=== PATIENT | female | born 1960 | race Caucasian/White ===

== ENCOUNTER → 2017-05-25 | Outpatient (CLI) | payer BC | END | disposition home or self-care (01) | LOC: LABWHC1 09:34 → LABPAT 09:34 | PROVIDERS: ATTEND Surgery Plastic and Reconstructive Surgery | DX: Z01.810 Encounter for preprocedural cardiovascular examination (principal) | CPT/HCPCS: 36415; 86850; 86900; 86901; 93005 ==

== ENCOUNTER 2022-06-20 00:59 | Inpatient (IN) | payer BC ==
--- NOTE | 2022-06-20 02:11 | ED ---
Weakness HPI - General Chief complaint: Weakness Stated complaint: dehydration Time Seen by Provider: 06/20/22 01:09 Source: EMS Mode of arrival: EMS Limitations: no limitations - History of Present Illness Initial comments: 54-year-old female past mental history of hypertension, thyroid disorder presents emergency department for [facility] as a transfer. Patient was hospitalized from the through the at their facility for nausea, vom iting and weakness. She had an EGD performed yesterday where she had "dilation of her pyloric sphincter" by Dr. Lerma after was found to be spastic. Patient also had small hiatal hernia. requested that the patient stay after the anesthesia as she normally is very sedated after procedures however they discharged her home. He was concerned that due to her hospitalization that she was severely decompensated and needed rehab. Patient was discharged home against there requests. She presented again tonight in the emergency department because of weakness. He required 3 nurses to get her into the examination room. She was minimally responsive. Laboratory studies were obtained. A CT head was performed which was read no acute process. Patient was given 2 L bolus of normal saline informal grams of Zofran. was requesting transfer to an outside facility as she has not been getting better. Transfer accepted by myself after approval from Dr. Christie. - Related Data Home Medications Medication Instructions Recorded Confirmed Omeprazole [PriLOSEC] 40 mg PO DAILY 06/20/22 06/20/22 Ondansetron Odt [Zofran Odt] 4 mg PO Q6H PRN 06/20/22 06/20/22 Potassium Chloride [Klor-Con 8] 8 meq PO DAILY 06/20/22 06/20/22 amLODIPine [Norvasc] 5 mg PO DAILY 06/20/22 06/20/22 levETIRAcetam [Keppra] 500 mg PO Q12HR 06/20/22 06/20/22 lisinopriL [Zestril] 5 mg PO BID 06/20/22 06/20/22 Allergies Allergy/AdvReac Type Severity Reaction Status Date / Time prednisone Allergy Rash/Hives Verified 06/20/22 08:08 sulfamethoxazole Allergy Rash/Hives Verified 06/20/22 08:08 [From Bactrim] trimethoprim [From Bactrim] Allergy Rash/Hives Verified 06/20/22 08:08 narcotics AdvReac Vomiting Uncoded 06/20/22 08:08 Review of Systems ROS Statement: Those systems with pertinent positive or pertinent negative responses have been documented in the HPI. ROS Other: All systems not noted in ROS Statement are negative. Past Medical History Past Medical History: Diabetes Mellitus, GERD/Reflux, Hypertension, Liver Disease, Osteoarthritis (OA), Pneumonia Additional Past Medical History / Comment(s): Pneumonia X2, Fatty liver. Current Hiatal Hernia. History of Any Multi-Drug Resistant Organisms: None Reported Past Surgical History: Hysterectomy, Orthopedic Surgery, Tonsillectomy Additional Past Surgical History / Comment(s): Right foot surgery, right knee arthroscopy, EGD, colonoscopy. Past Anesthesia/Blood Transfusion Reactions: Postoperative Nausea & Vomiting (P ONV) Past Psychological History: Anxiety Past Alcohol Use History: Rare Past Drug Use History: None Reported - Past Family History Father Family Medical History: Cancer Mother Family Medical History: Cancer General Exam Limitations: no limitations General appearance: alert, in no apparent distress Head exam: Present: atraumatic, normocephalic, normal inspection Eye exam: Present: normal appearance, PERRL, EOMI. Absent: scleral icterus, conjunctival injection, periorbital swelling ENT exam: Present: normal exam, mucous membranes moist Neck exam: Present: normal inspection. Absent: tenderness, meningismus, lymphadenopathy Respiratory exam: Present: normal lung sounds bilaterally. Absent: respiratory distress, wheezes, rales, rhonchi, stridor Cardiovascular Exam: Present: regular rate, normal rhythm, normal heart sounds. Absent: systolic murmur, diastolic murmur, rubs, gallop, clicks GI/Abdominal exam: Present: soft, normal bowel sounds. Absent: distended, tenderness, guarding, rebound, rigid Extremities exam: Present: normal inspection, full ROM, normal capillary refill. Absent: tenderness, pedal edema, joint swelling, calf tenderness Back exam: Present: normal inspection Neurological exam: Present: alert, oriented X3, CN II-XII intact Psychiatric exam: Present: normal affect, normal mood Skin exam: Present: warm, dry, intact, normal color. Absent: rash Course Vital Signs 06/20/22 06/20/22 06/20/22 01:14 04:48 05:37 Temperature 98.3 F Pulse Rate 81 74 Pulse Rate [ 73 Pulse Oximetery ] Respiratory 15 18 17 Rate Blood Pressure 131/72 147/87 Blood Pressure 165/92 [Left Arm] O2 Sat by Pulse 98 95 97 Oximetry EKG Findings - EKG Comments: EKG Findings:: EKG demonstrates sinus rhythm with a rate is 76. TN interval 120. QRS 90. QTC of 409. No acute ST segment elevations or depressions Medical Decision Making - Medical Decision Making Upon arrival patient was placed into room 4. I did review the patient's chart. I did complete laboratory studies myself. Magnesium is 1.4. I did replace her magnesium. Patient will be admitted to [facility] with GI consult - Lab Data Result diagrams: 06/21/22 06:09 06/21/22 06:09 Lab Results 06/20/22 06/20/22 06/20/22 Range/Units 02:09 02:19 02:19 WBC 9.5 (3.8-10.6) k/uL RBC 4.70 (3.80-5.40) m/uL Hgb 14.2 (11.4-16.0) gm/dL Hct 41.0 (34.0-46.0) % MCV 87.2 (80.0-100.0) fL MCH 30.2 (25.0-35.0) pg MCHC 34.7 (31.0-37.0) g/dL RDW 13.2 (11.5-15.5) % Plt Count 242 (150-450) k/uL MPV 8.0 Neutrophils % 67 % Lymphocytes % 24 % Monocytes % 6 % Eosinophils % 0 % Basophils % 1 % Neutrophils # 6.4 (1.3-7.7) k/uL Lymphocytes # 2.3 (1.0-4.8) k/uL Monocytes # 0.6 (0-1.0) k/uL Eosinophils # 0.0 (0-0.7) k/uL Basophils # 0.1 (0-0.2) k/uL PT 11.2 (9.0-12.0) sec INR 1.0 (<1.2) APTT 22.4 (22.0-30.0) sec Sodium (137-145) mmol/L Potassium (3.5-5.1) mmol/L Chloride (98-107) mmol/L Carbon Dioxide (22-30) mmol/L Anion Gap mmol/L BUN (7-17) mg/dL Creatinine (0.52-1.04) mg/dL Est GFR (CKD-EPI)AfAm (>60 ml/min/1.73 sqM) Est GFR (CKD-EPI)NonAf (>60 ml/min/1.73 sqM) Glucose (74-99) mg/dL Plasma Lactic Acid Gonzalo (0.7-2.0) mmol/L Calcium (8.4-10.2) mg/dL Magnesium (1.6-2.3) mg/dL Total Bilirubin (0.2-1.3) mg/dL AST (14-36) U/L ALT (4-34) U/L Alkaline Phosphatase (38-126) U/L Troponin I (0.000-0.034) ng/mL Total Protein (6.3-8.2) g/dL Albumin (3.5-5.0) g/dL TSH (0.465-4.680) mIU/L Urine Color Colorless Urine Appearance Clear (Clear) Urine pH 6.5 (5.0-8.0) Ur Specific [place] 1.006 (1.001-1.035) Urine Protein Negative (Negative) Urine Glucose (UA) Negative (Negative) Urine Ketones Negative (Negative) Urine Blood Negative (Negative) Urine Nitrite Negative (Negative) Urine Bilirubin Negative (Negative) Urine Urobilinogen <2.0 (<2.0) mg/dL Ur Leukocyte Esterase Negative (Negative) 06/20/22 06/20/22 06/20/22 Range/Units 02:19 02:19 02:19 WBC (3.8-10.6) k/uL RBC (3.80-5.40) m/uL Hgb (11.4-16.0) gm/dL Hct (34.0-46.0) % MCV (80.0-100.0) fL MCH (25.0-35.0) pg MCHC (31.0-37.0) g/dL RDW (11.5-15.5) % Plt Count (150-450) k/uL MPV Neutrophils % % Lymphocytes % % Monocytes % % Eosinophils % % Basophils % % Neutrophils # (1.3-7.7) k/uL Lymphocytes # (1.0-4.8) k/uL Monocytes # (0-1.0) k/uL Eosinophils # (0-0.7) k/uL Basophils # (0-0.2) k/uL PT (9.0-12.0) sec INR (<1.2) APTT (22.0-30.0) sec Sodium 137 (137-145) mmol/L Potassium 3.8 (3.5-5.1) mmol/L Chloride 100 (98-107) mmol/L Carbon Dioxide 24 (22-30) mmol/L Anion Gap 13 mmol/L BUN 7 (7-17) mg/dL Creatinine 0.55 (0.52-1.04) mg/dL Est GFR (CKD-EPI)AfAm >90 (>60 ml/min/1.73 sqM) Est GFR (CKD-EPI)NonAf >90 (>60 ml/min/1.73 sqM) Glucose 142 H (74-99) mg/dL Plasma Lactic Acid Gonzalo 1.2 (0.7-2.0) mmol/L Calcium 8.8 (8.4-10.2) mg/dL Magnesium 1.4 L (1.6-2.3) mg/dL Total Bilirubin 0.7 (0.2-1.3) mg/dL AST 55 H (14-36) U/L ALT 94 H (4-34) U/L Alkaline Phosphatase 76 (38-126) U/L Troponin I <0.012 (0.000-0.034) ng/mL Total Protein 6.6 (6.3-8.2) g/dL Albumin 4.1 (3.5-5.0) g/dL TSH 0.492 (0.465-4.680) mIU/L Urine Color Urine Appearance (Clear) Urine pH (5.0-8.0) Ur Specific [place] (1.001-1.035) Urine Protein (Negative) Urine Glucose (UA) (Negative) Urine Ketones (Negative) Urine Blood (Negative) Urine Nitrite (Negative) Urine Bilirubin (Negative) Urine Urobilinogen (<2.0) mg/dL Ur Leukocyte Esterase (Negative) Disposition Clinical Impression: Gastroesophageal reflux disease, Disorder of upper esophageal sphincter, Nausea & vomiting, Hypomagnesemia Disposition: ADMITTED IP TO [facility] Condition: Stable Is patient prescribed a controlled substance at d/c from ED?: No Time of Disposition: 03:44 Decision to Admit Reason: Admit from EC Decision Date: 06/20/22 Decision Time: 03:44
[2022-06-20 02:57] LABS: Basophils # (A) 0.1 k/uL (0-0.2); Basophils % (A) 1 %; Eosinophils % (A) 0 %; HGB 14.2 gm/dL (11.4-16.0); Lymphocytes # (A) 2.3 k/uL (1.0-4.8); Lymphocytes % (A) 24 %; MCH 30.2 pg (25.0-35.0); MCHC 34.7 g/dL (31.0-37.0); MCV 87.2 fL (80.0-100.0); Monocytes # (A) 0.6 k/uL (0-1.0); Monocytes % (A) 6 %; Neutrophils # (A) 6.4 k/uL (1.3-7.7); Neutrophils % (A) 67 %; Platelet Count 242 k/uL (150-450); RDW 13.2 % (11.5-15.5); WBC 9.5 k/uL (3.8-10.6)
[2022-06-20 03:11] LABS: Partial Thromboplastin Time 22.4 sec (22.0-30.0); Prothrombin Time 11.2 sec (9.0-12.0)
[2022-06-20 03:27] LABS: ALT 94 U/L (4-34); AST 55 U/L (14-36); African American GFR (CKD) >90 (>60 ml/min/1.73 sqM); Albumin 4.1 g/dL (3.5-5.0); Alkaline Phosphatase 76 U/L (38-126); Anion Gap 13 mmol/L; Blood Urea Nitrogen 7 mg/dL (7-17); Calcium 8.8 mg/dL (8.4-10.2); Carbon Dioxide 24 mmol/L (22-30); Chloride 100 mmol/L (98-107); Glucose 142 mg/dL (74-99); Magnesium 1.4 mg/dL (1.6-2.3); Non-African American GFR(CKD) >90 (>60 ml/min/1.73 sqM); Potassium 3.8 mmol/L (3.5-5.1); Sodium 137 mmol/L (137-145); Total Bilirubin 0.7 mg/dL (0.2-1.3); Total Protein 6.6 g/dL (6.3-8.2)
[2022-06-20] MEDS ORDERED: NALOXONE 0.4 MG/ML 1 ML VIAL IV PRN (03:46)
[2022-06-20] MEDS: SODIUM CHLORIDE 0.9% 1,000 ML IV SCH ×3 (05:39→20:16)
[2022-06-20] MEDS: MAGNESIUM SULFATE-D5W PMX 1 GM in DEXTROSE/WATER 1 100ML.BAG IVPB SCH ×3 (05:40→12:43)
[2022-06-20] MEDS: ONDANSETRON 4 MG/2 ML VIAL IVP PRN ×2 (06:27→20:16)
[2022-06-20 09:13] LABS: Appearance,Urine Clear (Clear); Bilirubin,Urine Negative (Negative); Blood,Urine Negative (Negative); Color,Urine Colorless; Glucose,Urine (UA) Negative (Negative); Ketones,Urine Negative (Negative); Leukocyte Esterase,Urine Negative (Negative); Nitrite,Urine Negative (Negative); PH, Urine 6.5 (5.0-8.0); Protein,Urine Negative (Negative); Specific Gravity,Urine 1.006 (1.001-1.035); Urobilinogen,Urine <2.0 mg/dL (<2.0)
[2022-06-20] MEDS: PANTOPRAZOLE 40 MG/10 ML VIAL IV SCH (09:36)
[2022-06-20] MEDS: lisinopriL 5 MG TAB PO SCH ×2 (10:56→20:15)
[2022-06-20] MEDS: levETIRAcetam 500 MG TAB PO SCH ×2 (10:56→20:15)
[2022-06-20] MEDS: amLODIPine 5 MG TAB PO SCH (10:56)
[2022-06-20] MEDS: HEPARIN SODIUM,PORCINE/PF 5,000 UNIT/0.5 ML SYRINGE SQ SCH ×2 (16:47→23:11)
--- NOTE | 2022-06-20 17:32 | P.CONS ---
History of Present Illness - Reason for Consult Consult date: 06/20/22 Nausea and vomiting Requesting physician: Ashley Butler - Chief Complaint Nausea and vomiting, weakness - History of Present Illness There is a pleasant 61-year-old female who was transferred from [facility] for intractable nausea and vomiting. She has a past medical history of diabetes mellitus diagnosed 15 years ago, states it is well controlled, GERD, hypertension, fatty liver and history of pneumonia. Apparently patient had been having nausea and vomiting for the last 12 days duration. She went [facility], and underwent an EGD yesterday and was diagnosed with spastic pylorus and a small hiatal hernia and status post low grade dilation of pylorus. She was discharged on Carafate and omeprazole. Apparently, the patient wanted to stay in the hospital due to increased weakness and fatigue however she was discharged home that afternoon. Apparently patient and reports that she had some electrolyte imbalances and was given replacement prior to discharge. When she was home she was able to eat a small amount of oatmeal and some saltine crackers without any nausea or vomiting. However patient ended up passing out, was very weak and went back to [facility]. At that time they asked to be transferred to a larger facility. Gastroenterology was consulted for intractable nausea and vomiting. Patient currently is denying any abdominal pain, she has some nausea but no vomiting. Admitting labs WBC 9.5 hemoglobin 14 hematocrit 41 platelet count 242,000 and INR 1.0 sodium 137 potassium 3.8 BUN 7 creatinine 0.55 glucose 142 magnesium 1.4 total bilirubin 0.7 AST 55 ALT 94 alkaline phosphatase 76 Review of Systems REVIEW OF SYSTEMS: CARDIOPULMONARY: No chest pain or shortness of breath. Gastrointestinal: No abdominal pain. No nausea or 12 days of nausea and vomiting prior to EGD. Still having nausea today, no vomiting. No hematemesis, coffee-ground emesis. No rectal bleeding, or melena. GENITOURINARY: No dysuria or hematuria. MUSCULOSKELETAL: Reports normal range of motion. SKIN: No rashes. No jaundice. ENDOCRINE: No chills, fevers. No excessive weight gain or loss. No polydipsia or polyuria. PSYCHIATRIC: Unremarkable. NEUROLOGY: No change in mental status. Denies dizziness, headache. ENT: Vision unremarkable. CONSTITUTIONAL: Increased weakness, fatigue and dizziness. Past Medical History Past Medical History: Diabetes Mellitus, GERD/Reflux, Hypertension, Liver Disease, Osteoarthritis (OA), Pneumonia Additional Past Medical History / Comment(s): Pneumonia X2, Fatty liver. Current Hiatal Hernia. History of Any Multi-Drug Resistant Organisms: None Reported Past Surgical History: Hysterectomy, Orthopedic Surgery, Tonsillectomy Additional Past Surgical History / Comment(s): Right foot surgery, right knee arthroscopy, EGD, colonoscopy. Past Anesthesia/Blood Transfusion Reactions: Postoperative Nausea & Vomiting (PONV) Past Psychological History: Anxiety Past Alcohol Use History: Rare Past Drug Use History: None Reported - Past Family History Father Family Medical History: Cancer Mother Family Medical History: Cancer Medications and Allergies Home Medications Medication Instructions Recorded Confirmed Type Omeprazole [PriLOSEC] 40 mg PO DAILY 06/20/22 06/20/22 History Ondansetron Odt [Zofran Odt] 4 mg PO Q6H PRN 06/20/22 06/20/22 History Potassium Chloride [Klor-Con 8] 8 meq PO DAILY 06/20/22 06/20/22 History amLODIPine [Norvasc] 5 mg PO DAILY 06/20/22 06/20/22 History levETIRAcetam [Keppra] 500 mg PO Q12HR 06/20/22 06/20/22 History lisinopriL [Zestril] 5 mg PO BID 06/20/22 06/20/22 History Allergies Allergy/AdvReac Type Severity Reaction Status Date / Time prednisone Allergy Rash/Hives Verified 06/20/22 08:08 sulfamethoxazole Allergy Rash/Hives Verified 06/20/22 08:08 [From Bactrim] trimethoprim [From Bactrim] Allergy Rash/Hives Verified 06/20/22 08:08 narcotics AdvReac Vomiting Uncoded 06/20/22 08:08 Physical Exam Vitals: Vital Signs Temp Pulse Pulse Resp BP BP Pulse Ox 06/20/22 07:00 98.4 F 71 16 164/81 97 06/20/22 05:37 98.3 F 73 17 165/92 97 06/20/22 04:48 74 18 147/87 95 06/20/22 01:14 81 15 131/72 98 Intake and Output 06/19/22 06/20/22 06/20/22 22:59 06:59 14:59 Other: # Voids 0 Weight 113.398 kg General appearance: The patient is alert, oriented, appears in no acute distress. HET: Head is normocephalic and atraumatic. Conjunctiva pink. Sclera anicteric. Neck: Supple without lymphadenopathy. Trachea midline. Heart: S1 S2. Regular rate and rhythm. Lungs: Clear to auscultation. Abdomen: Soft, nontender, nondistended with bowel sounds. No guarding or rigidity. Skin: No rashes. No jaundice. Extremities: Normal skin color and turgor. No pedal edema. Neurological: No focal deficits. Alert and oriented x3. Results CBC & Chem 7: 06/20/22 02:19 06/20/22 02:19 Labs: Abnormal Lab Results - Last 24 Hours (Table) 06/20/22 Range/Units 02:19 Glucose 142 H (74-99) mg/dL Magnesium 1.4 L (1.6-2.3) mg/dL AST 55 H (14-36) U/L ALT 94 H (4-34) U/L Assessment and Plan (1) Nausea & vomiting Narrative/Plan: This is a pleasant 61-year-old female who presented to [facility] with a complaint of nausea vomiting 12 days duration. Patient states she had difficulty keeping food down. She underwent an EGD yesterday by Dr. Lerma who diagnosed her with a spastic pylorus and dilated her pyloric sphincter. Patient also had a small hiatal hernia. She was started on Carafate and omeprazole and discharged home. Apparently patient was still feeling severely fatigued, weak and dizzy at home. She was able to tolerate some crackers and oatmeal without any further vomiting after her procedure. However apparently patient had passed out so her brought her back to [facility] and transferred here for further evaluation. Patient's magnesium was 1.4 on admission. Nausea vomiting improved. No plan for an endoscopic evaluation. We'll continue to treat symptomatically. Current Visit: Yes Status: Acute Code(s): R11.2 - NAUSEA WITH VOMITING, UNSPECIFIED SNOMED Code(s): 64011757 (2) Gastroesophageal reflux disease Current Visit: Yes Status: Acute Code(s): K21.9 - GASTRO-ESOPHAGEAL REFLUX DISEASE WITHOUT ESOPHAGITIS SNOMED Code(s): 850030815 (3) Hypomagnesemia Current Visit: Yes Status: Acute Code(s): E83.42 - HYPOMAGNESEMIA SNOMED Code(s): 971720895 (4) Diabetes type 2, controlled Current Visit: No Status: Acute Code(s): E11.9 - TYPE 2 DIABETES MELLITUS WITHOUT COMPLICATIONS SNOMED Code(s): 85449316 Plan: 1. Continue symptomatic and supportive care 2. Replace magnesium per protocol 3. Continue antiemetics as needed 4. Continue Protonix 40 mg daily 5. Patient may have full liquid diet, advance as tolerated 6. No plans on endoscopic evaluation, patient underwent EGD yesterday and [place] Thank you for this consultation, we will continue to follow. Dr. Morgan Lau I agree with the dictator's note, documented as a scribe by Maria Isabel Apple.
--- NOTE | 2022-06-20 21:53 | P.HPIM ---
History of Present Illness H&P Date: 06/20/22 Chief Complaint: Generalized weakness, nausea and vomiting Patient is a 61-year-old female with past medical history of hypertension, diabetes type 2 [id number], seizure disorder, hiatal hernia, anxiety was transferred from [facility]. Patient was initially admitted to the hospital on 06/12/2022 through due to complaints of nausea vomiting and generalized weakness. Patient had EGD done yesterday and had dilation of the pyloric sphincter by Dr. Lerma. She was also found to have small hiatal hernia. Patient was discharged home after the procedure even though she is very sedated at the time as per her at bedside. Patient was discharged home and last night she felt very weak while walking to the bathroom and almost passed out. Patient was found to be very weak and required 3 people assistance. Patient was also minimally responsive. CT head was done showed no acute process. Patient was given 2 L fluid bolus and IV Zofran was given. Patient was transferred to [facility] upon 's request. Patient is currently awake alert and oriented. No complaints of chest pain or shortness of breath. Does have nausea but improved. No abdominal pain. No fever no chills. No cough or sputum production Laboratory data on admission showed WBC 9.5 hemoglobin 14.2 and platelets 242 INR 1.0 Sodium 137 potassium 3.8 chloride 100 bicarb is 24 BUN 17 creatinine 0.55 Magnesium 1.4 AST 55 ALT 94 and alk phos 76 total bilirubin level is 0.7 TSH 0.492 Urinalysis negative for infection. EKG showed sinus rhythm Review of Systems Constitutional: Patient denies any fever or chills . Generalized weakness and fatigue. Abdomen: Patient complains of nausea or vomiting or mild epigastric abd. pain Cardiovascular: Patient denies any chest pain or short of breath no palpitations. Respiratory: patient denied any cough . no sputum production. No shortness of breath Neurologic: Patient denied any numbness or tingling headache. Musculoskeletal: Patient denies any complaints of joint swelling or deformity. Skin: Negative Psychiatric: Negative Endocrine: No heat or cold intolerance. No recent weight gain. Genitourinary: No dysuria or hematuria. All other 14 point ROS negative except the above Past Medical History Past Medical History: Diabetes Mellitus, GERD/Reflux, Hypertension, Liver Disease, Osteoarthritis (OA), Pneumonia Additional Past Medical History / Comment(s): Pneumonia X2, Fatty liver. Current Hiatal Hernia. History of Any Multi-Drug Resistant Organisms: None Reported Past Surgical History: Hysterectomy, Orthopedic Surgery, Tonsillectomy Additional Past Surgical History / Comment(s): Right foot surgery, right knee arthroscopy, EGD, colonoscopy. Past Anesthesia/Blood Transfusion Reactions: Postoperative Nausea & Vomiting (PONV) Past Psychological History: Anxiety Past Alcohol Use History: Rare Past Drug Use History: None Reported - Past Family History Father Family Medical History: Cancer Mother Family Medical History: Cancer Medications and Allergies Home Medications Medication Instructions Recorded Confirmed Type Omeprazole [PriLOSEC] 40 mg PO DAILY 06/20/22 06/20/22 History Ondansetron Odt [Zofran Odt] 4 mg PO Q6H PRN 06/20/22 06/20/22 History Potassium Chloride [Klor-Con 8] 8 meq PO DAILY 06/20/22 06/20/22 History amLODIPine [Norvasc] 5 mg PO DAILY 06/20/22 06/20/22 History levETIRAcetam [Keppra] 500 mg PO Q12HR 06/20/22 06/20/22 History lisinopriL [Zestril] 5 mg PO BID 06/20/22 06/20/22 History Allergies Allergy/AdvReac Type Severity Reaction Status Date / Time prednisone Allergy Rash/Hives Verified 06/20/22 08:08 sulfamethoxazole Allergy Rash/Hives Verified 06/20/22 08:08 [From Bactrim] trimethoprim [From Bactrim] Allergy Rash/Hives Verified 06/20/22 08:08 narcotics AdvReac Vomiting Uncoded 06/20/22 08:08 Physical Exam Vitals: Vital Signs Temp Pulse Pulse Resp BP BP Pulse Ox 06/20/22 07:00 98.4 F 71 16 164/81 97 06/20/22 05:37 98.3 F 73 17 165/92 97 06/20/22 04:48 74 18 147/87 95 06/20/22 01:14 81 15 131/72 98 Intake and Output 06/19/22 06/20/22 06/20/22 22:59 06:59 14:59 Other: # Voids 0 Weight 113.398 kg PHYSICAL EXAMINATION: Patient is lying in the bed comfortably, no acute distress, awake alert and oriented.. HEENT: Normocephalic. Neck is supple. Pupils reactive. Nostrils clear. Oral cavity is moist. Neck reveals no JVD, carotid bruits, or thyromegaly. CHEST EXAMINATION: Trachea is central. Symmetrical expansion. Lung maya clear to auscultation and percussion. CARDIAC: Normal S1, S2 with no gallops. No murmurs ABDOMEN: Soft. Bowel sounds present. Nontender. No organomegaly. No abdominal bruits. Extremities: reveal no edema. No clubbing or cyanosis Neurologically awake, alert, oriented x3 with well-coordinated movements. No focal deficits noted Skin: No rash or skin lesions. Psychiatric: Coperative. Nonsuicidal, Musculoskeletal: No joint swelling or deformity. Normal range of motion. Results CBC & Chem 7: 06/20/22 02:19 06/20/22 02:19 Labs: Abnormal Lab Results - Last 24 Hours (Table) 06/20/22 Range/Units 02:19 Glucose 142 H (74-99) mg/dL Magnesium 1.4 L (1.6-2.3) mg/dL AST 55 H (14-36) U/L ALT 94 H (4-34) U/L Thrombosis Risk Factor Assmnt - DVT/VTE Prophylaxis DVT/VTE Prophylaxis: Pharmacologic Prophylaxis ordered - Choose All That Apply Any of the Below Risk Factors Present?: Yes Each Factor Represents 1 point: Age 41-60 years, Obesity (BMI >25) Other Risk Factors: No Other congenital or acquired thrombophilia - If yes, enter type in comment: No Thrombosis Risk Factor Assessment Total Risk Factor Score: 2 Thrombosis Risk Factor Assessment Level: Low Risk Assessment and Plan Assessment: Intractable nausea and vomiting for the past 12 days. Patient was at [facility] and status post EGD and pylorus pelter dilation due to spasticity. Small hiatal hernia Hypomagnesemia History of seizure disorder GERD History of fatty liver Anxiety Diabetes type 2 [id number] Plan: Patient will be continued on IV hydration and supportive care. Symptomatic management for nausea and continue with PPI Patient was started on full liquid diet and advance as tolerated. Gastroenterology services on board. Continue with home medications and follow- up closely. Time with Patient: Greater than 30
[2022-06-21] MEDS: SODIUM CHLORIDE 0.9% 1,000 ML IV SCH ×3 (05:13→23:09)
[2022-06-21] MEDS: HEPARIN SODIUM,PORCINE/PF 5,000 UNIT/0.5 ML SYRINGE SQ SCH ×3 (08:16→23:09)
[2022-06-21] MEDS: PANTOPRAZOLE 40 MG/10 ML VIAL IV SCH (08:16)
[2022-06-21] MEDS: lisinopriL 5 MG TAB PO SCH ×2 (08:17→21:27)
[2022-06-21] MEDS: levETIRAcetam 500 MG TAB PO SCH ×2 (08:17→21:27)
[2022-06-21] MEDS: amLODIPine 5 MG TAB PO SCH (08:17)
[2022-06-21 09:11] LABS: Basophils # (A) 0.04 X 10*3/uL (0.00-0.10); Basophils % (A) 0.5 %; Eosinophils # (A) 0.13 X 10*3/uL (0.04-0.35); Eosinophils % (A) 1.6 %; HCT 40.5 % (37.2-46.3); HGB 13.7 g/dL (12.0-15.0); Immature Grans, Automated 0.4 %; Lymphocytes # (A) 3.49 X 10*3/uL (0.90-5.00); Lymphocytes % (A) 43.2 %; MCH 29.5 pg (27.0-32.0); MCHC 33.8 g/dL (32.0-37.0); MCV 87.1 fL (80.0-97.0); Mean Platelet Volume 9.7 fL (9.5-12.2); Monocytes # (A) 0.66 X 10*3/uL (0.20-1.00); Monocytes % (A) 8.2 %; NRBC Per 100 WBC 0 /100 WBCS (0.0-0.0); Neutrophils # (A) 3.72 X 10*3/uL (1.80-7.70); Neutrophils % (A) 46.1 %; Platelet Count 288 X 10*3/uL (140-440); RBC 4.65 X 10*6/uL (4.10-5.20); RDW 13.1 % (11.5-14.5); WBC 8.07 X 10*3/uL (4.50-10.00)
[2022-06-21 09:26] LABS: African American GFR (CKD) 109.1 (60.0-200.0); BUN/Creat Ratio 8.43 Ratio (12.00-20.00); Blood Urea Nitrogen 5.9 mg/dL (9.0-27.0); Calcium 8.8 mg/dL (8.7-10.3); Non-African American GFR(CKD) 94.2 (60.0-200.0); Potassium 3.4 mmol/L (3.5-5.5)
[2022-06-21] MEDS ORDERED: POTASSIUM CHLORIDE ER 20 MEQ TAB.ER PO STA (09:37)
[2022-06-21] MEDS: ONDANSETRON 4 MG/2 ML VIAL IVP PRN ×2 (13:20→20:16)
--- NOTE | 2022-06-21 16:42 | P.PN ---
Subjective Progress Note Date: 06/21/22 Principal diagnosis: Nausea and vomiting There is a pleasant 61-year-old female who was transferred from [facility] for intractable nausea and vomiting. She has a past medical history of diabetes mellitus diagnosed 15 years ago, states it is well controlled, GERD, hypertension, fatty liver and history of pneumonia. Apparently patient had been having nausea and vomiting for the last 12 days duration. She went [facility], and underwent an EGD yesterday and was diagnosed with spastic pylorus and a small hiatal hernia and status post low grade dilation of pylorus. She was discharged on Carafate and omeprazole. Apparently, the patient wanted to stay in the hospital due to increased weakness and fatigue however she was discharged home that afternoon. Apparently patient and reports that she had some electrolyte imbalances and was given replacement prior to discharge. When she was home she was able to eat a small amount of oatmeal and some saltine crackers without any nausea or vomiting. However patient ended up passing out, was very weak and went back to [facility]. At that time they asked to be transferred to a larger facility. Gastroenterology was consulted for intractable nausea and vomiting. Patient currently is denying any abdominal pain, she has some nausea but no vomiting. 07/21/2022: Patient seen and examined this is a follow-up for her nausea and vomiting. Patient states vomiting has improved, nausea is still present but much better. She's tolerating full liquid diet. Objective - Vital Signs Vital signs: Vital Signs Temp 98.2 F 06/21/22 12:41 Pulse 69 06/21/22 12:41 Resp 14 06/21/22 12:41 BP 156/93 06/21/22 12:41 Pulse Ox 99 06/21/22 12:41 FiO2 Intake & Output 06/20/22 06/21/22 06/21/22 18:59 06:59 18:59 Intake Total 236 240 Balance 236 240 Intake: Oral 236 240 Other: Voiding Method Toilet Toilet Toilet # Voids 2 2 1 # Bowel Movements 1 - Exam General appearance: The patient is alert, oriented, appears in no acute distress. HET: Head is normocephalic and atraumatic. Conjunctiva pink. Sclera anicteric. Neck: Supple without lymphadenopathy. Abdomen: Soft, nontender, nondistended with bowel sounds. No guarding or ri gidity. Extremities: Normal skin color and turgor. No pedal edema Skin: No rashes, no jaundice Neurological: No focal deficits. Alert and oriented x 3. - Labs CBC & Chem 7: 06/21/22 06:09 06/21/22 06:09 Labs: Abnormal Lab Results - Last 24 Hours (Table) 06/21/22 Range/Units 06:09 Potassium 3.4 L (3.5-5.5) mmol/L BUN 5.9 L (9.0-27.0) mg/dL BUN/Creatinine Ratio 8.43 L (12.00-20.00) Ratio Glucose 124 H (70-110) mg/dL Assessment and Plan (1) Nausea & vomiting Narrative/Plan: This is a pleasant 61-year-old female who presented to [facility] with a complaint of nausea vomiting 12 days duration. Patient states she had difficulty keeping food down. She underwent an EGD yesterday by Dr. Lerma who diagnosed her with a spastic pylorus and dilated her pyloric sphincter. Patient also had a small hiatal hernia. She was started on Carafate and omeprazole and discharged home. Apparently patient was still feeling severely fatigued, weak and dizzy at home. She was able to tolerate some crackers and oatmeal without any further vomiting after her procedure. However apparently patient had passed out so her brought her back to [facility] and transferred here for further evaluation. Patient's magnesium was 1.4 on admission. Nausea vomiting improved. No plan for an endoscopic evaluation. We'll continue to treat symptomatically. Current Visit: Yes Status: Acute Code(s): R11.2 - NAUSEA WITH VOMITING, UNSPECIFIED SNOMED Code(s): 80051708 (2) Gastroesophageal reflux disease Current Visit: Yes Status: Acute Code(s): K21.9 - GASTRO-ESOPHAGEAL REFLUX DISEASE WITHOUT ESOPHAGITIS SNOMED Code(s): 829703989 (3) Hypomagnesemia Current Visit: Yes Status: Acute Code(s): E83.42 - HYPOMAGNESEMIA SNOMED Code(s): 866260398 (4) Diabetes type 2, controlled Current Visit: No Status: Acute Code(s): E11.9 - TYPE 2 DIABETES MELLITUS WITHOUT COMPLICATIONS SNOMED Code(s): 12903600 Plan: 1. Continue symptomatic and supportive care 2. Replace potassium per protocol 3. Continue antiemetics as needed 4. Continue Protonix 40 mg daily 5. Advance diet as tolerated 6. No plans on endoscopic evaluation, patient underwent EGD 06/19/2022 in [place] Thank you for this consultation, we will continue to follow. Dr. Morgan Lau I agree with the dictator's note, documented as a scribe by Maria Isabel Apple.
[2022-06-22] MEDS: PANTOPRAZOLE 40 MG TABLET PO SCH (08:11)
[2022-06-22] MEDS: amLODIPine 5 MG TAB PO SCH (08:11)
[2022-06-22] MEDS: levETIRAcetam 500 MG TAB PO SCH ×2 (08:11→19:43)
[2022-06-22] MEDS: SODIUM CHLORIDE 0.9% 1,000 ML IV SCH ×2 (08:12→19:43)
[2022-06-22] MEDS: lisinopriL 5 MG TAB PO SCH ×2 (08:12→19:43)
[2022-06-22] MEDS: HEPARIN SODIUM,PORCINE/PF 5,000 UNIT/0.5 ML SYRINGE SQ SCH ×3 (08:25→23:26)
[2022-06-22] MEDS: ALPRAZolam 0.25 MG TAB PO PRN (11:52)
--- NOTE | 2022-06-22 13:43 | P.PN ---
Subjective Progress Note Date: 06/22/22 Principal diagnosis: Nausea and vomiting There is a pleasant 61-year-old female who was transferred from [facility] for intractable nausea and vomiting. She has a past medical history of diabetes mellitus diagnosed 15 years ago, states it is well controlled, GERD, hypertension, fatty liver and history of pneumonia. Apparently patient had been having nausea and vomiting for the last 12 days duration. She went [facility], and underwent an EGD yesterday and was diagnosed with spastic pylorus and a small hiatal hernia and status post low grade dilation of pylorus. She was discharged on Carafate and omeprazole. Apparently, the patient wanted to stay in the hospital due to increased weakness and fatigue however she was discharged home that afternoon. Apparently patient and reports that she had some electrolyte imbalances and was given replacement prior to discharge. When she was home she was able to eat a small amount of oatmeal and some saltine crackers without any nausea or vomiting. However patient ended up passing out, was very weak and went back to [facility]. At that time they asked to be transferred to a larger facility. Gastroenterology was consulted for intractable nausea and vomiting. Patient currently is denying any abdominal pain, she has some nausea but no vomiting. 07/21/2022: Patient seen and examined this is a follow-up for her nausea and vomiting. Patient states vomiting has improved, nausea is still present but much better. She's tolerating full liquid diet. 07/22/2022. Patient again seen and evaluated as follow-up for nausea vomiting. States she her breakfast this morning and had some nausea however she states that it may be related to dizziness. She sat up to eat her breakfast and said that she felt very dizzy. She states that she gets this way when she gets anxious and she believes that her anxiety is increased at this time. No vomiting. Objective - Vital Signs Vital signs: Vital Signs Temp 97.9 F 06/22/22 07:00 Pulse 68 06/22/22 07:00 Resp 15 06/22/22 08:16 BP 128/79 06/22/22 07:00 Pulse Ox 98 06/22/22 07:00 FiO2 Intake & Output 06/21/22 06/22/22 06/22/22 18:59 06:59 18:59 Intake Total 480 Balance 480 Intake: Oral 480 Other: Voiding Method Toilet Toilet Toilet # Voids 1 1 # Bowel Movements 1 - Exam General appearance: The patient is alert, oriented, appears in no acute distress. HET: Head is normocephalic and atraumatic. Conjunctiva pink. Sclera anicteric. Neck: Supple without lymphadenopathy. Abdomen: Soft, nontender, nondistended with bowel sounds. No guarding or rigidity. Extremities: Normal skin color and turgor. No pedal edema Skin: No rashes, no jaundice Neurological: No focal deficits. Alert and oriented x 3. - Labs CBC & Chem 7: 06/21/22 06:09 06/21/22 06:09 Assessment and Plan (1) Nausea & vomiting Narrative/Plan: This is a pleasant 61-year-old female who presented to [facility] with a complaint of nausea vomiting 12 days duration. Patient states she had di fficulty keeping food down. She underwent an EGD yesterday by Dr. Lerma who diagnosed her with a spastic pylorus and dilated her pyloric sphincter. Patient also had a small hiatal hernia. She was started on Carafate and omeprazole and discharged home. Apparently patient was still feeling severely fatigued, weak and dizzy at home. She was able to tolerate some crackers and oatmeal without any further vomiting after her procedure. However apparently patient had passed out so her brought her back to [facility] and transferred here for further evaluation. Patient's magnesium was 1.4 on admission. Nausea vomiting improved. No plan for an endoscopic evaluation. We'll continue to treat symptomatically. Improved. Current Visit: Yes Status: Acute Code(s): R11.2 - NAUSEA WITH VOMITING, UNSPECIFIED SNOMED Code(s): 73341133 (2) Gastroesophageal reflux disease Current Visit: Yes Status: Acute Code(s): K21.9 - GASTRO-ESOPHAGEAL REFLUX DISEASE WITHOUT ESOPHAGITIS SNOMED Code(s): 726861413 (3) Hypomagnesemia Current Visit: Yes Status: Acute Code(s): E83.42 - HYPOMAGNESEMIA SNOMED Code(s): 020903861 (4) Diabetes type 2, controlled Current Visit: No Status: Acute Code(s): E11.9 - TYPE 2 DIABETES MELLITUS WITHOUT COMPLICATIONS SNOMED Code(s): 49060702 (5) Anxiety Current Visit: Yes Status: Acute Code(s): F41.9 - ANXIETY DISORDER, UNSPECIFIED SNOMED Code(s): 33648529 Plan: 1. Continue symptomatic and supportive care 2. Continue antiemetics as needed 3. Continue Protonix 40 mg daily 4. Advance diet as tolerated 5. No plans on endoscopic evaluation, patient underwent EGD 06/19/2022 in [place] [facility]. Medical team to address anxiety. Thank you this consultatiopatient is cleared for discharge from gastroenterology. We will sign off at this time. Dr. Morgan Lau I agree with the dictator's note, documented as a scribe by Maria Isabel Apple.
[2022-06-22 16:08] VITALS: RESP 18
[2022-06-23 03:19] LABS: Basophils # (A) 0.1 k/uL (0-0.2); Basophils % (A) 1 %; Eosinophils # (A) 0.2 k/uL (0-0.7); Eosinophils % (A) 2 %; HCT 40.1 % (34.0-46.0); HGB 13.5 gm/dL (11.4-16.0); Lymphocytes # (A) 3.7 k/uL (1.0-4.8); Lymphocytes % (A) 42 %; MCH 29.7 pg (25.0-35.0); MCHC 33.6 g/dL (31.0-37.0); MCV 88.2 fL (80.0-100.0); Mean Platelet Volume 7.9; Monocytes # (A) 0.5 k/uL (0-1.0); Monocytes % (A) 6 %; Neutrophils # (A) 4.1 k/uL (1.3-7.7); Neutrophils % (A) 46 %; Platelet Count 231 k/uL (150-450); RBC 4.55 m/uL (3.80-5.40); RDW 13.3 % (11.5-15.5); WBC 8.9 k/uL (3.8-10.6)
[2022-06-23 04:33] LABS: African American GFR (CKD) >90 (>60 ml/min/1.73 sqM); Anion Gap 14 mmol/L; Blood Urea Nitrogen 7 mg/dL (7-17); Calcium 9.1 mg/dL (8.4-10.2); Carbon Dioxide 21 mmol/L (22-30); Chloride 102 mmol/L (98-107); Glucose 149 mg/dL (74-99); Non-African American GFR(CKD) >90 (>60 ml/min/1.73 sqM); Potassium 3.5 mmol/L (3.5-5.1); Sodium 137 mmol/L (137-145)
[2022-06-23] MEDS: SODIUM CHLORIDE 0.9% 1,000 ML IV SCH (07:16)
[2022-06-23] MEDS: PANTOPRAZOLE 40 MG TABLET PO SCH (07:20)
[2022-06-23] MEDS: amLODIPine 5 MG TAB PO SCH (07:21)
[2022-06-23] MEDS: lisinopriL 5 MG TAB PO SCH (07:21)
[2022-06-23] MEDS: levETIRAcetam 500 MG TAB PO SCH (07:21)
[2022-06-23] MEDS: HEPARIN SODIUM,PORCINE/PF 5,000 UNIT/0.5 ML SYRINGE SQ SCH (07:21)
[2022-06-23 07:23] VITALS: BP 132/78; PULSE 70; TEMP 97.9
[2022-06-23] MEDS: ALPRAZolam 0.25 MG TAB PO PRN (13:31)
== END 2022-06-23 15:34 | disposition home or self-care (01) | DRG 392 ==
LOC: EC 00:59 → 6NMEDSUR 03:46
PROVIDERS: ADMIT Hospitalist; ATTEND Hospitalist
DX: K21.00 Gastro-esophageal reflux disease with esophagitis, without bleeding (principal); E86.0 Dehydration; E83.42 Hypomagnesemia; R11.2 Nausea with vomiting, unspecified; E11.9 Type 2 diabetes mellitus without complications; F41.9 Anxiety disorder, unspecified; G40.909 Epilepsy, unspecified, not intractable, without status epilepticus; M19.90 Unspecified osteoarthritis, unspecified site; I10 Essential (primary) hypertension; K44.9 Diaphragmatic hernia without obstruction or gangrene; K76.0 Fatty (change of) liver, not elsewhere classified; Z79.899 Other long term (current) drug therapy; Z87.01 Personal history of pneumonia (recurrent); Z90.710 Acquired absence of both cervix and uterus; Z88.2 Allergy status to sulfonamides; Z88.8 Allergy status to other drugs, medicaments and biological substances
CPT/HCPCS: 36415; 80048; 80053; 81003; 83605; 83735; 84443; 84484; 85025; 85610; 85730; 93005; 99285

== ENCOUNTER → 2024-01-02 | Outpatient (CLI) | payer BC | END | disposition home or self-care (01) | LOC: LABPAT 10:28 | PROVIDERS: ATTEND Orthopaedic Surgery | DX: Z01.812 Encounter for preprocedural laboratory examination (principal); M17.12 Unilateral primary osteoarthritis, left knee; Z22.322 Carrier or suspected carrier of Methicillin resistant Staphylococcus aureus | CPT/HCPCS: 87070 ==

== ENCOUNTER 2024-02-11 06:17 | Day surgery (SDC) | payer BC ==
--- NOTE | 2024-02-10 08:48 | P.HPOR ---
History of Present Illness H&P Date: 02/10/24 Chief Complaint: Left knee pain The patient is a 63-year-old female who presents with progressive left knee pain for the past 2 years. She notes anterior and medial pain along with swelling and stiffness. She has pain with weightbearing activities. She has buckling and locking. She also is having night symptoms. She's tried medications in addition to previous injections without much relief. Review of Systems As per HPI Past Medical History Past Medical History: Diabetes Mellitus, GERD/Reflux, Hyperlipidemia, Hypertension, Liver Disease, Osteoarthritis (OA), Pneumonia Additional Past Medical History / Comment(s): Pneumonia X2, Fatty liver. Seizure symptoms - hospitalized in 2021 - all testing neg for seizures, determined it was a side effect of taking paxil - takes depakote prophylactically now. History of Any Multi-Drug Resistant Organisms: None Reported Past Surgical History: Cholecystectomy, Hernia Repair, Hysterectomy, Orthopedic Surgery, Tonsillectomy Additional Past Surgical History / Comment(s): Right foot surgery, right knee arthroscopy, EGD, colonoscopy. Loop recorder placed 3-4 yrs ago, pt. states battery is . Past Anesthesia/Blood Transfusion Reactions: Motion Sickness, Postoperative Nausea & Vomiting (PONV) Additional Past Anesthesia/Blood Transfusion Reaction / Comment(s): Severe PONV with all surgeries per pt. Occasional motion sickness. Takes longer to wake up after anesthesia per pt. Smoking Status: Never smoker - Past Family History Father Family Medical History: Cancer Mother Family Medical History: Cancer Medications and Allergies Home Medications Medication Instructions Recorded Confirmed Type Ondansetron Odt [Zofran ODT] 4 mg PO Q6H PRN 06/20/22 02/05/24 History lisinopriL [Zestril] 5 mg PO DAILY 06/20/22 02/05/24 History ALPRAZolam [Xanax] 0.25 mg PO BID PRN 06/22/22 02/05/24 History Acetaminophen [Tylenol Arthritis] 650 mg PO Q4-6H PRN 02/05/24 02/05/24 History Desvenlafaxine Succinate [Pristiq 25 mg PO DAILY 02/05/24 02/05/24 History ER] Divalproex [Depakote] 250 mg PO BID 02/05/24 02/05/24 History Ezetimibe [Zetia] 10 mg PO HS 02/05/24 02/05/24 History Fish Oil/Dha/Epa [Fish Oil 1,200 1 each PO DAILY 02/05/24 02/05/24 History mg Fish Oil] Gabapentin 600 mg PO HS 02/05/24 02/05/24 History Gabapentin [Neurontin] 400 mg PO BID 02/05/24 02/05/24 History Ibuprofen [Motrin] 400 mg PO Q6HR PRN 02/05/24 02/05/24 History Lansoprazole 30 mg PO BID 02/05/24 02/05/24 History Magnesium 420 mg PO HS 02/05/24 02/05/24 History Multivit with Calcium,Iron,Min 1 each PO DAILY 02/05/24 02/05/24 History [Women's Multivitamin] Semaglutide [Ozempic] 1 mg SQ TU 02/05/24 02/05/24 History metFORMIN HCL [Glucophage] 500 mg PO BID 02/05/24 02/05/24 History Allergies Allergy/AdvReac Type Severity Reaction Status Date / Time prednisone Allergy Rash/Hives Verified 02/05/24 10:36 sulfamethoxazole Allergy Rash/Hives Verified 02/05/24 10:36 [From Bactrim] trimethoprim [From Bactrim] Allergy Rash/Hives Verified 02/05/24 10:36 band-aids Allergy Rash/Hives Uncoded 02/05/24 11:06 narcotics AdvReac Vomiting Uncoded 02/05/24 10:36 Physical Examination - Knee left Appearance: effusion Effusion grade: grade 1 Varus alignment in stance: 10 degrees Tenderness with palpation: anterior, medial Pain: throughout ROM Gait: limping ROM: extension: -10 degrees ROM: flexion: 110 degrees Crepitus with motion: Yes Strength: extension: 5/5 Strength: flexion: 5/5 Meniscal tests: medial meniscal tests: positive, medial joint line pain: positive Results Patient is a well-developed well-nourished female proximal a 5 foot 2, 150 pounds of endomorphic habitus. HEENT exam is nonfocal, neck is supple. She has painless passive motion of her left hip. She is tender about the medial joint line and the left knee. Collaterals are stable, Margaret was negative, and Mc Palma's is equivocal. She has genu varum alignment. She has an antalgic gait pattern. Her distal neurovascular exam appears intact in the left lower extremity. - Diagnostic results Knee x-ray: image reviewed (3 views of the left knee obtaining office shows severe medial and patellofemoral compartment joint space narrowing along with subchondral sclerosis and [id number] changes.) Assessment and Plan Assessment: Left knee severe medial and patellofemoral compartment osteoarthrosis Diabetic neuropathy Type 2 diabetes Plan: Talk to the patient at length regarding her condition will treat options. She is having significant pain and mechanical symptoms related to her left knee osteoporosis despite conservative measures. After a thorough discussion she opts to proceed with surgery. We'll plan to proceed with left total knee arthroplasty. Risks and benefits were discussed at length in layman's terms. We will institute DVT prophylaxis postoperatively.
[~2024-02-11 06:17] MED LIST: TRANEXAMIC 1,000 MG/100ML-NACL 1,000 MG in SALINE 1 100ML.BAG IVPB PRN
[2024-02-11] MEDS ORDERED: LIDOCAINE 1% (10MG/ML) FOR IV START INTRADERMA PRN (06:44)
[2024-02-11] MEDS ORDERED: MIDAZOLAM 2 MG/2 ML VIAL IV PRN (07:00)
[2024-02-11] MEDS: LACTATED RINGERS 1,000 ML IV ONE ×5 (07:11→16:20)
[2024-02-11 07:14] LABS: Glucose,Whole Blood 104 mg/dL (70-110)
[2024-02-11] MEDS: ONDANSETRON 4 MG/2 ML VIAL IVP ONE (07:33)
[2024-02-11] MEDS: MELOXICAM 7.5 MG TAB PO PRN (07:33)
[2024-02-11] MEDS: ACETAMINOPHEN TAB 500 MG TAB PO PRN (07:33)
[2024-02-11] MEDS: MIDAZOLAM 2 MG/2 ML VIAL IVP ONE (07:51)
[2024-02-11] MEDS ORDERED: PHENYLEPHRINE-0.9% NACL SYG 1,000 MCG/10 ML SYRINGE ONE (08:31)
[2024-02-11] MEDS ORDERED: MIDAZOLAM 2 MG/2 ML VIAL ONE (08:31)
[2024-02-11] MEDS ORDERED: ROPIVACAINE 5 MG/ML 30 ML VIAL ONE (08:31)
[2024-02-11] MEDS ORDERED: fentaNYL (PF) 50 MCG/ML 2 ML AMP ONE (08:31)
[2024-02-11] MEDS ORDERED: TRANEXAMIC 1,000 MG/100ML-NACL PREMIX BAG ONE (08:31)
[2024-02-11] MEDS ORDERED: PROPOFOL 10 MG/ML 20 ML VIAL IV ONE (08:31)
[2024-02-11] MEDS: ceFAZolin 1,000 MG in SODIUM CHLORIDE 0.9% 1,000 ML IRRIGATION ONE (08:36)
[2024-02-11] MEDS ORDERED: HYDROmorphone 0.5 MG/0.5 ML SYRINGE IVP PRN (10:08)
[2024-02-11] MEDS ORDERED: HYDROmorphone 1 MG/ML 1 ML SYRINGE IVP PRN (10:08)
[2024-02-11] MEDS ORDERED: NALOXONE 0.4 MG/ML 1 ML VIAL IV PRN (10:08)
[2024-02-11] MEDS ORDERED: MAGNESIUM HYDROXIDE 2,400 MG/30 ML CUP PO PRN (10:08)
[2024-02-11] MEDS ORDERED: HYDROcodone/APAP 5-325MG 1 EACH TAB PO PRN (10:08)
--- NOTE | 2024-02-11 10:26 | P.OP ---
Date of Procedure: 02/11/24 Preoperative Diagnosis: Left knee severe tricompartmental osteoarthrosis Postoperative Diagnosis: Same Procedure(s) Performed: Left total knee arthroplastycementedposterior stabilized Implants: Depuy Attune size 5 narrow cemented femoral component, size 4 cemented tibial component, 9 mm articular surface, 32 mm cemented patellar component. There is a posterior stabilized implant. Anesthesia: regional, spinal Surgeon: Felix Mcgregor Scarifier Operator #1: Vikas Ervin Estimated Blood Loss (ml): 50 Pathology: none sent Condition: stable Disposition: PACU Indications for Procedure: The patient is a 63-year-old female who presents with progressive left knee pain and mechanical symptoms secondary to osteoarthrosis despite conservative measures. A discussion of the risks and benefits of operative intervention versus continued conservative measures was made with the patient. She opted to proceed with surgery. Operative risks include infection, neurovascular injury, development of blood clots, fracture, possible component loosening/failure and possible need for subsequent procedures was discussed. Informed consent was obtained. Operative Findings: As below Description of Procedure: The patient was brought to the operating room, and after induction of spinal anesthesia the left lower extremity was prepped and draped in a normal fashion. The tourniquet was inflated to 270 mm marker. A longitudinal incision extending 3 finger breaths above the superior pole of patella extending to the medial aspect the tibial tubercle was then made. The skin and subcutaneous tissues were divided sharply. Electrocautery was used for hemostasis. A medial parapatellar arthrotomy was performed. The medial soft tissues to include the superficial and deep portions of the medial collateral ligament were elevated subperiosteally. The patella was everted. A portion of the retropatellar fat pad was excised sharply. The anterior cruciate ligament was sacrificed. Blunt retractors were placed. A starting hole was made in the distal femur 1 cm anterior to the posterior cruciate ligament origin. An intramedullary femoral guide was then inserted planning on 5 valgus distal cut with 9 mm distal resection. The cutting block was pinned in place. The distal cut was then made. The posterior referencing sizing guide was utilized. I felt size 5 narrow was most appropriate. 3 of external rotation was built into the system and verified off the trans-epicondylar axis and the posterior condyles. The cutting block was pinned in place. The anterior, posterior, and chamfer cuts then made. Bone fragments were removed. The intercondylar guide was placed and the notch cut was made with a sagittal saw. The bone block was removed in one fragment. The trial component was then placed. There is good anterior to posterior and medial to lateral fit. The distal peg holes were drilled. The trial component was removed. Attention was then paid towards preparing the pro ximal tibia. An extra medullary guide was utilized in line with the tibial shaft and second metatarsal distally. I planned on 2 mm resection from the medial compartment. The cutting block was pinned in place. The proximal tibial cut was then made. The bone was removed in one fragment. The remnants of the medial and lateral menisci were excised at the capsular junction with electrocautery. The tibia sized most appropriately at size 4. The trial femoral and tibial components were placed along with a 9 mm articular surface. I was able to obtain full flexion and extension with internal and external rotation. After several flexion and extension cycles, the tibial rotation was marked with electrocautery line with the medial one third of the tibial tubercle. Attention was then paid towards preparing the patella. A patella reamer was utilized taking stem to 14 mm of bone stock. A good flush cut was made. The patella sized most appropriately 32 mm. The peg holes were drilled. The trial components placed. I had good patellofemoral tracking with no hands technique. The trial components were then removed. The tibia was prepared in the appropriate rotation with appropriate drill and keel punch. The posterior osteophytes were removed with a curved osteotome. The flexion and extension gaps were checked and felt to be symmetric at 9 mm. A trial components were then removed. The bony surfaces were prepared with pulsatile lavage and dried. The tibial component was then cemented place was fully seated. Excess cement was removed. The femoral component cemented place and was fully seated. Excess cement was removed. The trial 9 mm articular surface was placed and the knee was put in full extension. The patella component was cemented place. After the cement had sufficiently hardened, the knee was again taken through a range of motion. Again I was able to obtain full flexion and extension with varus and valgus stress. The trial 9 mm articular surface was removed and the final one inserted. This was fully seated. Care was taken to avoid any soft tissue interposition. Pulsatile lavage was again utilized. The medial parapatellar arthrotomy was closed with #2 Ethibond suture. The tourniquet was deflated with approximately 60 minutes total tourniquet time. Final hemostasis was obtained with the cautery. There was minimal bleeding therefore a deep drain was not placed. The subcutaneous tissues were reapproximated with interrupted 2-0 Vicryl sutures. The skin was reapproximated with 3-0 subcuticular strata fix suture. Skin tape and adhesive was applied. A sterile dressing was applied. The patient was awoken from sedation and transferred to recovery room in good condition. Blood loss was estimated at 50 mL. No complications were incurred. Sponge and needle counts were correct at the end of the case. Vikas DELEON assisted during the major components of this case to include exposure, bone resection, implantation, and closure.
--- NOTE | 2024-02-11 10:53 | XR ---
EXAMINATION TYPE: XR knee limited LT DATE OF EXAM: 02/11/2024 10:46 AM CLINICAL INDICATION:Female, 63 years old with history of Evaluation for Postop abnormality and alignm ent; [facility] COMPARISON: None. TECHNIQUE: XR knee limited LT; examined in Frontal, lateral and oblique projections. FINDINGS: Status post total knee arthroplasty changes with hardware in appropriate alignment and in tact. No evidence of fracture. Subcutaneous lucencies and lucencies within the joint consistent with surgical changes. IMPRESSION: Status post total knee arthroplasty changes with hardware intact and appropriate alignment. No fractu res identified.
[2024-02-11] MEDS: ROPIVACAINE 1,100 MG, SODIUM CHLORIDE 0.9% 500 ML 330 ML, EMPTY PAIN BALL 1 EACH MISCELLANE PRN (11:18)
--- NOTE | 2024-02-11 11:43 | P.ANPRN ---
Procedure Note - Anesthesia - Nerve Block Performed Left Adductor Canal Infusion Time Out Performed: Yes Date of Procedure: 02/11/24 Procedure Start Time: 07:50 Procedure Stop Time: 07:47 Location of Patient: PreOp Indication: Acute Post-Operative Pain, Requested by Surgeon Sedation Type: Sedate with meaningful contact maintained Preparation: Sterile Prep, Sterile Dressing Position: Supine Catheter: Indwelling Needle Types: Pajunk Needle Gauge: 21 Ultrasound used to visualize needle placement: Yes Ultrasound used to observe medication spread: Yes Blood Aspirated: No Pain Paresthesia on Injection Noted: No Resistance on Injection: Normal Image Stored and Saved: Yes Events: Uneventful and Well Tolerated (ropi .5% 20cc)
--- NOTE | 2024-02-11 11:44 | P.ANPRN ---
Procedure Note - Anesthesia - Nerve Block Performed Left iPack Single Time Out Performed: Yes Date of Procedure: 02/11/24 Procedure Start Time: 07:58 Procedure Stop Time: 08:00 Location of Patient: PreOp Indication: Acute Post-Operative Pain, Requested by Surgeon Sedation Type: Sedate with meaningful contact maintained Preparation: Sterile Prep Position: Supine Needle Types: Pajunk Needle Gauge: 21 Ultrasound used to visualize needle placement: Yes Ultrasound used to observe medication spread: Yes Blood Aspirated: No Pain Paresthesia on Injection Noted: No Resistance on Injection: Normal Image Stored and Saved: Yes Events: Uneventful and Well Tolerated (ropi. 5% 20cc)
[2024-02-11] MEDS: HYDROmorphone 0.5 MG/0.5 ML SYRINGE IVP PRN (12:07)
[2024-02-11 16:15] LABS: Glucose,Whole Blood 166 mg/dL (70-110)
[2024-02-11] MEDS: HYDROcodone/APAP 7.5-325MG 1 EACH TAB PO PRN (16:29)
[2024-02-11] MEDS: GABAPENTIN 400 MG CAP PO SCH (16:29)
[2024-02-11] MEDS: LACTATED RINGERS 1,000 ML IV SCH (16:32)
[2024-02-11] MEDS ORDERED: ONDANSETRON ODT 4 MG TAB PO PRN (17:30)
[2024-02-11] MEDS ORDERED: ALPRAZolam 0.25 MG TAB PO PRN (17:30)
[2024-02-11] MEDS: PANTOPRAZOLE 40 MG TABLET PO SCH (20:28)
[2024-02-11] MEDS: metFORMIN 500 MG TAB PO SCH (20:29)
[2024-02-11] MEDS: GABAPENTIN 300 MG CAP PO SCH (20:29)
[2024-02-11] MEDS: EZETIMIBE 10 MG TAB PO SCH (20:29)
[2024-02-11] MEDS: SENNOSIDES-DOCUSATE SODIUM 1 EACH TAB PO SCH (20:29)
[2024-02-11] MEDS: hydrOXYzine pamoate 25 MG CAP PO PRN (20:45)
[2024-02-11] MEDS: DIVALPROEX 250 MG TABLET.DR PO SCH (20:46)
[2024-02-11 20:51] LABS: Glucose,Whole Blood 109 mg/dL (70-110)
[2024-02-12 06:24] LABS: Glucose,Whole Blood 127 mg/dL (70-110)
--- NOTE | 2024-02-12 06:58 | P.PN ---
Progress Note - Text Progress Note Date: 02/12/24 Postoperative day # 1 status post total knee arthroplasty, and adductor canal catheter placed for postoperative analgesia, currently at ropivacaine 0.2% 8 mL per hour and continuous infusion, visual analogue scale is 3-5/10, patient using oral pain medication for breakthrough pain. Assessment and plan= Acute postoperative pain, adductor canal catheter for pain control, pain is well controlled we'll continue the same management.
[2024-02-12] MEDS: RIVAROXABAN 10 MG TAB PO SCH (07:47)
[2024-02-12] MEDS: lisinopriL 5 MG TAB PO SCH (07:47)
[2024-02-12 07:53] VITALS: BP 100/67; PULSE 94; RESP 17; TEMP 99.1
[2024-02-12] MEDS: NON FORMULARY DRUG (Desvenlafaxine Succinate [Pristiq] 25 MG Tab.Er.24h) PO SCH (07:56)
[2024-02-12 08:47] LABS: Basophils # (A) 0.04 X 10*3/uL (0.00-0.10); Basophils % (A) 0.5 %; Eosinophils # (A) 0.08 X 10*3/uL (0.04-0.35); HCT 32.6 % (37.2-46.3); HGB 11.3 g/dL (12.0-15.0); Lymphocytes # (A) 1.31 X 10*3/uL (0.90-5.00); Lymphocytes % (A) 17.1 %; MCH 31.2 pg (27.0-32.0); MCHC 34.7 g/dL (32.0-37.0); MCV 90.1 FL (80.0-97.0); Mean Platelet Volume 10.2 FL (9.5-12.2); Monocytes # (A) 0.77 X 10*3/uL (0.20-1.00); NRBC Per 100 WBC 0 X 10*3/uL (0.00-0.01); Neutrophils # (A) 5.44 X 10*3/uL (1.80-7.70); Platelet Count 216 X 10*3/uL (140-440); RBC 3.62 X 10*6/uL (4.10-5.20); RDW 13.4 % (11.5-14.5); WBC 7.67 X 10*3/uL (4.50-10.00)
--- NOTE | 2024-02-12 10:04 | P.CONS ---
Past Medical History Past Medical History: Diabetes Mellitus, GERD/Reflux, Hyperlipidemia, Hypertension, Liver Disease, Osteoarthritis (OA), Pneumonia Additional Past Medical History / Comment(s): Pneumonia X2, Fatty liver. Seizure symptoms - hospitalized in 2021 - all testing neg for seizures, determined it was a side effect of taking paxil - takes depakote prophylactically now. History of Any Multi-Drug Resistant Organisms: None Reported Past Surgical History: Cholecystectomy, Hernia Repair, Hysterectomy, Orthopedic Surgery, Tonsillectomy Additional Past Surgical History / Comment(s): Right foot surgery, right knee arthroscopy, EGD, colonoscopy. Loop recorder placed 3-4 yrs ago, pt. states battery is . Past Anesthesia/Blood Transfusion Reactions: Motion Sickness, Postoperative Nausea & Vomiting (PONV) Additional Past Anesthesia/Blood Transfusion Reaction / Comm: Severe PONV with all surgeries per pt. Occasional motion sickness. Takes longer to wake up after anesthesia per pt. Past Psychological History: Anxiety, Depression Smoking Status: Never smoker Past Alcohol Use History: Rare Past Drug Use History: None Reported - Past Family History Father Family Medical History: Cancer Mother Family Medical History: Cancer Medications and Allergies Home Medications Medication Instructions Recorded Confirmed Type Ondansetron Odt [Zofran ODT] 4 mg PO Q6H PRN 06/20/22 02/11/24 History lisinopriL [Zestril] 5 mg PO DAILY 06/20/22 02/11/24 History ALPRAZolam [Xanax] 0.25 mg PO BID PRN 06/22/22 02/11/24 History Acetaminophen [Tylenol Arthritis] 650 mg PO Q4-6H PRN 02/05/24 02/11/24 History Desvenlafaxine Succinate [Pristiq 25 mg PO DAILY 02/05/24 02/11/24 History ER] Divalproex [Depakote] 250 mg PO BID 02/05/24 02/11/24 History Ezetimibe [Zetia] 10 mg PO HS 02/05/24 02/11/24 History Fish Oil/Dha/Epa [Fish Oil 1,200 1 each PO DAILY 02/05/24 02/11/24 History mg Fish Oil] Gabapentin 600 mg PO HS 02/05/24 02/11/24 History Gabapentin [Neurontin] 400 mg PO BID 02/05/24 02/11/24 History Ibuprofen [Motrin] 400 mg PO Q6HR PRN 02/05/24 02/11/24 History Lansoprazole 30 mg PO BID 02/05/24 02/11/24 History Magnesium 420 mg PO HS 02/05/24 02/11/24 History Multivit with Calcium,Iron,Min 1 each PO DAILY 02/05/24 02/11/24 History [Women's Multivitamin] Semaglutide [Ozempic] 1 mg SQ TU 02/05/24 02/11/24 History metFORMIN HCL [Glucophage] 500 mg PO BID 02/05/24 02/11/24 History Allergies Allergy/AdvReac Type Severity Reaction Status Date / Time prednisone Allergy Rash/Hives Verified 02/11/24 06:44 sulfamethoxazole Allergy Rash/Hives Verified 02/11/24 06:44 [From Bactrim] trimethoprim [From Bactrim] Allergy Rash/Hives Verified 02/11/24 06:44 band-aids Allergy Rash/Hives Uncoded 02/11/24 06:44 narcotics AdvReac Vomiting Uncoded 02/11/24 06:44 Physical Exam Vitals: Vital Signs Temp Pulse Resp BP Pulse Ox 02/12/24 07:07 99.1 F 94 17 100/67 95 02/12/24 02:00 98.1 F 101 H 103/66 90 L 02/11/24 20:00 97.9 F 90 142/83 97 02/11/24 16:00 73 16 139/71 98 02/11/24 14:30 75 16 142/75 98 02/11/24 13:30 76 16 126/60 99 02/11/24 13:00 77 16 124/72 97 02/11/24 12:22 78 16 120/69 97 02/11/24 11:45 79 16 108/66 95 02/11/24 11:15 78 16 100/57 94 L 02/11/24 11:00 76 16 99/58 95 02/11/24 10:45 76 16 105/64 99 02/11/24 10:30 75 16 109/66 99 02/11/24 10:22 97 F L 80 12 100/69 98 Intake and Output 02/11/24 02/12/24 02/12/24 22:59 06:59 14:59 Intake Total 900 Output Total 500 Balance 400 Intake: IV 900 Output: Urine 500 Other: # Voids 1 2 Weight 67.6 kg Results CBC & Chem 7: 02/12/24 05:24 Labs: Abnormal Lab Results - Last 24 Hours (Table) 02/11/24 02/12/24 02/12/24 Range/Units 16:12 05:24 06:12 RBC 3.62 L (4.10-5.20) X 10*6/uL Hgb 11.3 L (12.0-15.0) g/dL Hct 32.6 L (37.2-46.3) % POC Glucose (mg/dL) 166 H 127 H (70-110) mg/dL
--- NOTE | 2024-02-12 11:30 | P.DS ---
Providers Date of admission: 02/11/2024 Expected date of discharge: 02/12/24 Attending physician: Felix Mcgregor Consults: 02/11/24 10:08 Consult Physician Routine Consulting Provider: Najma Duarte Consult Reason/Comments: medical management s/p left total knee arthroplasty Do you want consulting provider notified?: Yes Primary care physician: [facility]vid[facility] Course: Date of admission: 02/11/2024 Date of discharge: 02/12/2024 Admission diagnosis: Left knee osteoarthritis Discharge diagnosis: Same Attending physician: Dr. Mcgregor Surgical procedures: Left total knee arthroplasty Brief history: Patient is a 63-year-old female with a history of progressive primary left knee osteoarthritis. At this point patient has failed conservative treatment measures and has opted to proceed with a elective left total knee arthroplasty. Hospital course: Details of patient's surgery can be found in operative report. Patient tolerated the procedure well and was subsequently transported to orthopedic floor. Patient's orthopeidc and medical care was provided daily. Patient had daily laboratory tests performed for evaluation of overall blood counts. Patient had daily physical therapy to include strengthening range of motion as well as education with walker ambulation. Patient was treated with Xarelto for their postoperative DVT prophylaxis during their inpatient stay. Patient was noted to have a relatively uneventful postoperative course. Patient reported satisfactory pain control with oral pain medications by postoperative day 1. Patient showed satisfactory progress with physical therapy. Patient moved steadily through the program and had no difficulty meeting the goals by postoperative day 1. Given patient's otherwise satisfactory course and having met physical therapy goals, plan is to discharge patient home with health services on postoperative day 1. Discharge condition/disposition: Patient will be discharged home with health services in stable condition. Discharge medications: Instructions are given on resumption of patient's normal daily medications per primary care recommendation, in addition patient will be prescribed [place]; senna; Eliquis 2.5 mg twice a day 2 weeks. Discharge instructions: 1. Wound care and infection precautions, keep incision dry and covered while showering, no lotions, creams, moisturizers. No soaking, tubs, pools, hottubs. Do not scrub over the incision. 2. Weight-bear as tolerated with walker / cane until follow-up. 3. Ice and elevate when necessary. Do not exceed 20 minutes per hour with ice pack. 4. Utilize compression sleeve until seen at first follow up appointment. 5. Visiting nursing care. 6. Home physical therapy including home CPM. 7. Pain meds and anticoagulants per prescription. 8. Pain medication has potential to cause constipation. Increase oral fluid and fiber intake. Contact primary care provider if you have not had a bowel movement within 48 hours after discharge 9. No anti-inflammatory medication until discussed at first post operative visit, this including Motrin, Aleve, Mobic, Diclofenac. 10. Follow up in office at 2 weeks postop with Liborio Murphy PA-C / Vikas Ervin PA-C 11. Follow up with your primary care doctor 7-10 days after discharge. 12. Contact [facility] with any questions, . Keep incision clean, dry, intact. While showering, cover fusion tape with Saran wrap. Keep fusion tape on until follow-up appointment office at 2 weeks. Assessment: Left knee osteoarthritis Procedures: Left total knee arthroplasty Patient Condition at Discharge: Good Plan - Discharge Summary Discharge Rx Participant: No New Discharge Prescriptions: New Apixaban [Eliquis] 2.5 mg PO BID #60 tab HYDROcodone/APAP 7.5-325MG [[place] 7.5-325] 1 - 2 tab PO Q6HR PRN #36 tab PRN Reason: Pain Sennosides/Docusate Sodium [Senna Plus 8.6-50 mg Softgel] 1 each PO DAILY #20 capsule No Action ALPRAZolam [Xanax] 0.25 mg PO BID PRN PRN Reason: anxiety Lansoprazole 30 mg PO BID Gabapentin [Neurontin] 400 mg PO BID Ezetimibe [Zetia] 10 mg PO HS Divalproex [Depakote] 250 mg PO BID Desvenlafaxine Succinate [Pristiq ER] 25 mg PO DAILY Gabapentin 600 mg PO HS Fish Oil/Dha/Epa [Fish Oil 1,200 mg Fish Oil] 1 each PO DAILY Ibuprofen [Motrin] 400 mg PO Q6HR PRN PRN Reason: Pain lisinopriL [Zestril] 5 mg PO DAILY Ondansetron Odt [Zofran ODT] 4 mg PO Q6H PRN PRN Reason: Nausea Semaglutide [Ozempic] 1 mg SQ TU metFORMIN HCL [Glucophage] 500 mg PO BID Multivit with Calcium,Iron,Min [Women's Multivitamin] 1 each PO DAILY Magnesium 420 mg PO HS Acetaminophen [Tylenol Arthritis] 650 mg PO Q4-6H PRN PRN Reason: Pain Discharge Medication List Ondansetron Odt [Zofran ODT] 4 mg PO Q6H PRN 06/20/22 [History] lisinopriL [Zestril] 5 mg PO DAILY 06/20/22 [History] ALPRAZolam [Xanax] 0.25 mg PO BID PRN 06/22/22 [History] Acetaminophen [Tylenol Arthritis] 650 mg PO Q4-6H PRN 02/05/24 [History] Desvenlafaxine Succinate [Pristiq ER] 25 mg PO DAILY 02/05/24 [History] Divalproex [Depakote] 250 mg PO BID 02/05/24 [History] Ezetimibe [Zetia] 10 mg PO HS 02/05/24 [History] Fish Oil/Dha/Epa [Fish Oil 1,200 mg Fish Oil] 1 each PO DAILY 02/05/24 [History] Gabapentin 600 mg PO HS 02/05/24 [History] Gabapentin [Neurontin] 400 mg PO BID 02/05/24 [History] Ibuprofen [Motrin] 400 mg PO Q6HR PRN 02/05/24 [History] Lansoprazole 30 mg PO BID 02/05/24 [History] Magnesium 420 mg PO HS 02/05/24 [History] Multivit with Calcium,Iron,Min [Women's Multivitamin] 1 each PO DAILY 02/05/24 [History] Semaglutide [Ozempic] 1 mg SQ TU 02/05/24 [History] metFORMIN HCL [Glucophage] 500 mg PO BID 02/05/24 [History] Apixaban [Eliquis] 2.5 mg PO BID #60 tab 02/12/24 [Rx] HYDROcodone/APAP 7.5-325MG [[place] 7.5-325] 1 - 2 tab PO Q6HR PRN #36 tab 02/12/24 [Rx] Sennosides/Docusate Sodium [Senna Plus 8.6-50 mg Softgel] 1 each PO DAILY #20 capsule 02/12/24 [Rx] Follow up Appointment(s)/Referral(s): Vikas Ervin, JOSEPH [PHYSICIAN QA TEST ANALYST] - 2 Weeks [facility] [NON-STAFF] - As Needed (*Please call [facility] once home to arrange delivery of the Continuous Passive Motion (CPM) machine.) [facility], [NON-STAFF] - 1-2 Days ([facility] will call you to schedule your in home nursing and physical therapy visits. ) Patient Instructions/Handouts: Knee Replacement (DC), Knee Replacement (GEN) Activity/Diet/Wound Care/Special Instructions: Orthopedic Discharge Instructions: 1. Wound care and infection precautions, keep incision dry and covered while showering, no lotions, creams, moisturizers. No soaking, pools, hot tubs. Do not scrub over incision. 2. Weight-bear as tolerated with walker / cane until follow-up. 3. Ice and elevate when necessary. Do not exceed 20 minutes per hour with ice pack. 4. Utilize compression sleeve until seen at first follow up appointment. 5. Pain meds and anticoagulants per prescription. 6. Pain medication has potential to cause constipation. Increase oral fluid and fiber intake. Contact primary care provider if you have not had a bowel movement within 48 hours after discharge. 7. No anti-inflammatory medication until discussed at first post operative visit, this including Motrin, Aleve, Mobic, Diclofenac. 8. Follow up in office at 2 weeks postop with Liborio Murphy PA-C / Vikas Ervin PA-C 9. Follow up with your primary care doctor 7-10 days after discharge. 10. Contact [facility] with any questions, . Keep incision clean, dry, intact. While showering, cover fusion tape with Saran wrap. Keep fusion tape on until follow-up appointment office in 2 weeks. Discharge Disposition: HOME WITH HOME HEALTH SERVICES
[2024-02-12 11:32] LABS: Glucose,Whole Blood 166 mg/dL (70-110)
--- NOTE | 2024-02-12 11:33 | P.PN ---
Subjective Progress Note Date: 02/12/24 Principal diagnosis: Left knee osteoarthritis Patient was seen at bedside this morning lying semirecumbent position with Finn bandage and dressing present over the left lower extremity. Patient says she just finished working with therapy and walk down the [place] and up-and-down steps. Patient says she is hoping your home later stay. Patient says she does have walk for home. Patient says she has urinated without issue since surgery yesterday. Patient says she has not had bowel movement yet, however, patient says she has been passing gas. Patient denies any other orthopedic complaints at this time. Patient denies chest pain, fever, shortness of breath, nausea, vomiting, table vision, loss of bowel/bladder control. Objective - Vital Signs Vital signs: Vital Signs Temp 99.1 F 02/12/24 07:07 Pulse 94 02/12/24 07:07 Resp 17 02/12/24 07:07 BP 100/67 02/12/24 07:07 Pulse Ox 95 02/12/24 07:07 FiO2 Intake & Output 02/11/24 02/12/24 02/12/24 18:59 06:59 18:59 Intake Total 2851 Output Total 550 Balance 2301 Weight 67.6 kg Intake: IV 2851 Output: Urine 500 Estimated Blood Loss 50 Other: # Voids 1 2 - Exam Left knee: Incision is clean, dry, and intact. The exofin fusion tape is in good condition. There is minimal soft tissue swelling and ecchymosis surrounding the medial and lateral aspects of the incision. Calf is soft, no tenderness with palpation. Plantar flexion, dorsiflexion, EHL, FHL are intact. Sensory exam to light touch throughout the extremity is intact, dorsal pedis pulses 2+. - Labs CBC & Chem 7: 02/12/24 05:24 Labs: Abnormal Lab Results - Last 24 Hours (Table) 02/11/24 02/12/24 02/12/24 Range/Units 16:12 05:24 06:12 RBC 3.62 L (4.10-5.20) X 10*6/uL Hgb 11.3 L (12.0-15.0) g/dL Hct 32.6 L (37.2-46.3) % POC Glucose (mg/dL) 166 H 127 H (70-110) mg/dL Assessment and Plan Assessment: Left knee osteoarthritis - Postoperative day 1 status post left total knee arthroplasty Plan: 1. Left knee osteoarthritis - left total knee was performed yesterday, 02/11/2024. Patient stable at bedside this morning. Patient did do well with therapy this morning. Patient does have a walker for home. Discharge home today with health services. 2. Appreciate medical management 3. Pain management - [place] 4. GI prophylaxis - senna 5. DVT prophylaxis - Xarelto in hospital. Going home with Eliquis 2.5 milligrams twice a day 2 weeks 6. PT/OT - weightbearing as tolerated with walker 7. Encourage incentive spirometer use 8. Discharge planning - home today with health services Time with Patient: Less than 30
== END 2024-02-12 13:13 | disposition home health service (06) ==
LOC: OR 06:17 → 4SSUR 10:19 → OR 02-12 13:13
PROVIDERS: ATTEND Orthopaedic Surgery
DX: M17.12 Unilateral primary osteoarthritis, left knee (principal); G89.18 Other acute postprocedural pain; M25.762 Osteophyte, left knee; I10 Essential (primary) hypertension; E78.5 Hyperlipidemia, unspecified; E11.9 Type 2 diabetes mellitus without complications; K21.9 Gastro-esophageal reflux disease without esophagitis; K76.0 Fatty (change of) liver, not elsewhere classified; Z90.49 Acquired absence of other specified parts of digestive tract; Z90.89 Acquired absence of other organs; Z90.710 Acquired absence of both cervix and uterus; Z98.890 Other specified postprocedural states; Z79.84 Long term (current) use of oral hypoglycemic drugs; Z88.2 Allergy status to sulfonamides; Z88.1 Allergy status to other antibiotic agents; Z88.5 Allergy status to narcotic agent
CPT/HCPCS: 97162; 64999; 64448; 85025; 73560; 27447; C1713 ×2; C1776; C1751; J2250; J0690 ×2; J2405; J2795; J1170